=== PATIENT | male | born 1940 | race Caucasian/White ===

== ENCOUNTER 2018-01-29 11:59 | Emergency (ER) | payer OTHER ==
[~2018-01-29] VITALS: Ht 182.9 cm; Wt 87.3 kg
[~2018-01-29 11:59] MED LIST: ADULT LOW DOSE81 MG PO; ALTACE5 M1; AMLODIPINE BESYL5 MG PO; ASPIR 8181 MG PO; ATORVASTATIN CA20 MG PO; EFFIENT10 MG PO; FLUZONE 2045 MCG/011; LISINOPRIL10 MG PO; MAG-OX 400 TAB400 MG PO; METFORMIN; METFORMIN HCL500 MG PO; PNEUMOVAX25 MCG/0.5; SIMVASTATIN40 MG PO; TOPROL XL25 MG PO
[2018-01-29] MEDS ORDERED: GLIPIZIDE 10 MG10 MG PO (12:07)
[2018-01-29] MEDS ORDERED: NORCO 5-325 TA1 EACH PO (12:47)
[2018-01-29 13:30] VITALS: BP 152/77
== END 2018-01-29 13:30 | disposition home or self-care (01) ==
LOC: M.ERS 11:59
DX: S43.101A Unspecified dislocation of right acromioclavicular joint, initial encounter (principal); E11.9 Type 2 diabetes mellitus without complications; I10 Essential (primary) hypertension; I25.10 Atherosclerotic heart disease of native coronary artery without angina pectoris; Z88.0 Allergy status to penicillin; W01.0XXA Fall on same level from slipping, tripping and stumbling without subsequent striking against object, initial encounter; Y93.89 Activity, other specified; Y92.89 Other specified places as the place of occurrence of the external cause; Y99.8 Other external cause status

== ENCOUNTER 2019-10-14 23:35 | Inpatient (IN) | payer OTHER ==
[~2019-10-14] VITALS: Ht 182.9 cm; Wt 81.6 kg
--- NOTE | ~2019-10-14 | OP ---
[address] [address] OPERATIVE REPORT Name: HUGH MCCONNELL Room: [address] IN M.R.#: [id number] Admission: 10/15/19 Attend Phys: Dale Singer MD Discharge: Date of : 38 Report #: [id number] THIS REPORT FOR: //name// CC: Dale Hunter PREOPERATIVE DIAGNOSIS: Left intertrochanteric femur fracture. POSTOPERATIVE DIAGNOSIS: Left intertrochanteric femur fracture. PROCEDURES: 1. Closed reduction and cephalomedullary fixation of left intertrochanteric femur fracture. 2. Physician-directed fluoroscopy. SURGEON: Jax Iraheta DO ASSISTANTS: 1. Mamadou Boss DO 2. Mamadou Evangelista DO ANESTHESIA: General. ANTIBIOTICS: Ancef IV. FLUIDS: 800 mL of lactated Ringer's. BLOOD LOSS: 100 mL. COMPLICATIONS: None. SPECIMENS: None. DRAINS: None. CONDITION OF PATIENT: Stable to the PACU. IMPLANTS: Adele gamma nail 10 x 170 mm x 125 degree with appropriately sized lag screw and distal interlocking static screw. INDICATIONS FOR PROCEDURE: The patient admitted to [facility]. Our consultation was obtained for left intertrochanteric femur fracture. He required medical clearance and Cardiology as well, ultimately cleared for surgery medically. I went over with the patient and significant other plan of surgery and risks and complications in detail as well as imaging and treatment options. Please see consultation note for full details of our discussion had. We obtained verbal and written consent to proceed [place] [address] OPERATIVE REPORT Name: HUGH MCCONNELL Room: [address] IN .R.#: [id number] Admission: 10/15/19 Attend Phys: Dale Singer MD Discharge: Date of : 38 Report #: [id number] the surgery as planned. DESCRIPTION OF PROCEDURE: I marked the left lower extremity in the presence of the operative team members. Everyone in attendance agreed. He was taken back to the operative suite where a briefing was performed indicating correct patient, procedure, site, antibiotics and that implants were present and sterile. All team members agreed. General anesthetic was administered. He was transferred over to the operating table in supine position, well-padded and secured. The left lower extremity was then closed reduced. C-arm brought in on multiplanar imaging, confirmed the reduction was excellent. Left lower extremity was then sterilely prepped and draped in standard fashion after he was confirmed to be appropriately padded. Timeout was performed indicating correct patient, procedure, site, antibiotics and that implants were present and sterile. All team members agreed. Marked out our incisions with the help of fluoroscopy. A scalpel was taken through skin proximal to the greater trochanter. Dissection down to the greater trochanter. Smooth ball-tipped guidewire inserted and advanced under multiplanar C-arm imaging in the appropriate position. We then reamed over that guidewire. Final implant had been thrown on to the back table of a 10 x 170 x 125 degree nail. This was inserted and scalpel was made for a double sleeve for lag screw placement. We then placed the guidewire in the appropriate position within the femoral neck and head on multiplanar C-arm imaging, measured, reamed, and placed the appropriately sized lag screw. Multiple pictures were taken. There was no malreduction during lag screw placement. We then engaged our setscrew and backed off one quarter turn confirming that the set screw was fully engaged by no longer being able to turn the lag screwdriver handle. We then disengaged the lag screwdriver from the lag screw, removed the guidewire and guide, made an incision for distal interlocking static screw. The guide was placed down to bone, drilled, measured and placed an appropriate length and position static screw, removed the external aiming guide. Final images showed excellent placement of hardware and reduction of fracture. Saved the images and dismissed C-arm, irrigated thoroughly with normal saline. Deep layers were closed with 0 Vicryl [id number] interrupted. Subcutaneous and skin were closed with 2-0 Monocryl buried deep yaquelin for skin. Debriefing performed where we confirmed procedure, blood loss and that all counts were correct and final. All team members agreed. Sterile silver impregnated dressings were applied and he was transferred off the operating table, taken to the PACU stable after being extubated successfully. POSTOPERATIVE COURSE AND EVALUATION: I spoke with his family members including his significant other, addressed any questions they had to their stated satisfaction. They were thankful for my time and efforts. He was resting in PACU with stable vital signs, pain controlled, neurovascularly intact. Dressing clean, dry and intact. Compartments were compressible. No pain with passive stretch. Weightbear as tolerated. PT, OT, case management to help with the discharge planning. DVT prophylaxis will be both pharmacological and [address] [address] OPERATIVE REPORT Name: HUGH MCCONNELL Room: [address] IN .R.#: [id number] Admission: 10/15/19 Attend Phys: Dale Singer MD Discharge: Date of : 38 Report #: [id number] mechanical. He was admitted to the medical service and Cardiology, when saw the patient in the PACU and he was overall doing well. I encouraged nursing and medical staff, the patient and family to call anytime with questions or concerns. By: [id number] Iraheta DO /papi
[~2019-10-14 23:35] MED LIST changes: +GLIPIZIDE 10 MG10 MG PO; +NORCO 5-325 TA1 EACH PO
[2019-10-14] MEDS ORDERED: FOSAMAX PLUS D1 EACH PO (23:41)
[2019-10-15 00:11] LABS: ABSOLUTE BASOPHILS 0.1 thou/uL (0.0-0.2); ABSOLUTE EOSINOPHILS 0.1 thou/uL (0.0-0.7); ABSOLUTE LYMPHOCYTES 1.9 thou/uL (0.8-5.3); ABSOLUTE MONOCYTES 0.6 thou/uL (0.0-1.2); ABSOLUTE NEUTROPHILS 3.9 thou/uL (1.6-8.1); BASOPHILS 0.9 %; HEMOGLOBIN 13.3 gm/dL (14.0-18.0); LYMPHOCYTES 29.5 %; MCH 29.5 pg (26.0-34.0); MCHC 33.2 g/dL (28.0-37.0); MCV 88.8 fL (80.0-100.0); MONOCYTES 8.6 %; MPV 9.2 fl. (7.2-11.1); NUCLEATED RBCS 0 /100WBC; PLATELET COUNT* 168 thou/uL (150-400); RBC 4.51 mil/uL (4.50-6.00); RDW-CV 13.5 % (10.5-14.5); WBC 6.6 thou/uL (4.0-11.0)
[2019-10-15 00:17] LABS: PROTIME 10.7 Seconds (9.20-11.50)
[2019-10-15 00:18] LABS: CREATININE 1.2 mg/dL (0.6-1.3); POTASSIUM 4.1 mmol/L (3.5-5.1)
[2019-10-15 00:22] LABS: ALBUMIN 3.4 g/dL (3.4-5.0); TOTAL BILIRUBIN 0.4 mg/dL (<0.1-1.0); TOTAL PROTEIN 7.2 g/dL (6.4-8.2)
[2019-10-15 01:15] VITALS: BP 150/70
[2019-10-15 01:24] VITALS: BP 181/80
[2019-10-15 01:30] VITALS: BP 150/70
[2019-10-15 09:55] VITALS: BP 149/65
--- NOTE | 2019-10-15 12:20 | EKG ---
[place] [address] ELECTROCARDIOGRAM REPORT Name: HUGH MCCONNELL Room: [address] ADM IN .R.#: [id number] Admission: 10/15/19 Attend Phys: Dale Singer MD Discharge: Date of : 38 Report #: [id number] THIS REPORT FOR: //name// [facility] ED Test Date: 2019-10-15 Test Time: 00:16:24 Pat Name: HUGH MCCONNELL Department: Room: [facility] Gender: Internal Investigator: [place] : 1940 Requested By: Silvia Hernandez Order Number: [id number] MD: Munir Karimi Measurements Intervals [place] Rate: 65 P: 66 DC: 142 QRS: 7 QRSD: 105 T: 42 QT: 405 QTc: 422 Interpretive Statements Sinus rhythm Multiple atrial premature complexes Compared to ECG 09/01/2016 12:39:52 no significant change. Electronically Signed On 10-15-2019 12:20:13 VIDEO GAME DEVELOPER by Munir [email or web address] <ELECTRONICALLY SIGNED> By: Estefany Karimi MD, [facility] 10/15/19 1220 0016 0016 Estefany Karimi MD, [facility] /EPI
[2019-10-15 12:32] LABS: CHOLESTEROL 144 mg/dL (<200); HDL CHOLESTEROL 44 mg/dL (>40); LDL CHOLESTEROL 79 mg/dL (<100); TC:HDL 3.3 Ratio (Not establshd); TRIGLYCERIDE 108 mg/dL (<150); VLDL 22 mg/dL (<40)
[2019-10-15 12:35] LABS: SERUM ASSESSMENT Clear
[2019-10-15 16:32] VITALS: BP 124/40
[2019-10-15 20:34] VITALS: BP 123/55
[2019-10-16 03:06] LABS: GLYCOHEMOGLOBIN (HGB A1C) 10.9 % (4.8-5.6)
[2019-10-16 04:47] LABS: ABSOLUTE EOSINOPHILS 0.1 thou/uL (0.0-0.7); ABSOLUTE LYMPHOCYTES 1.7 thou/uL (0.8-5.3); ABSOLUTE MONOCYTES 0.7 thou/uL (0.0-1.2); ABSOLUTE NEUTROPHILS 6.4 thou/uL (1.6-8.1); BASOPHILS 0.4 %; EOSINOPHILS 1.2 %; HEMATOCRIT 34.5 % (42.0-52.0); HEMOGLOBIN 11.7 gm/dL (14.0-18.0); LYMPHOCYTES 18.9 %; MCH 30.2 pg (26.0-34.0); MCHC 33.9 g/dL (28.0-37.0); MCV 89.1 fL (80.0-100.0); MONOCYTES 8.1 %; MPV 9.2 fl. (7.2-11.1); NUCLEATED RBCS 0 /100WBC; PLATELET COUNT* 138 thou/uL (150-400); POLYS 71.4 %; RBC 3.88 mil/uL (4.50-6.00); RDW-CV 13.8 % (10.5-14.5)
[2019-10-16 04:53] LABS: CALCIUM 8.3 mg/dL (8.5-10.1); CREATININE 0.9 mg/dL (0.6-1.3); POTASSIUM 4.2 mmol/L (3.5-5.1)
[2019-10-16 08:02] VITALS: BP 134/52
[2019-10-16 09:00] VITALS: BP 134/52
--- NOTE | 2019-10-16 16:26 | CON ---
[address] [address] CONSULTATION Name: HUGH MCCONNELL Room: [address] IN .R.#: [id number] Admission: 10/15/19 Attend Phys: Dale Singer MD Discharge: Date of : 38 Report #: [id number] THIS REPORT FOR: //name// CC: Dale Hunter DATE OF SERVICE: 10/15/2019 CARDIOLOGY CONSULTATION HISTORY OF PRESENT ILLNESS: I was asked by Dr. Singer to see this 79-year-old white male in Cardiology consultation for preoperative evaluation prior to undergoing an open repair of the left hip. This gentleman fell last night around 10:00 and fractured his left hip. This man has a history of coronary artery disease. He is status post 4 stents in 2011. He has not been followed closely by Cardiology. He cancelled appointments. He cannot give much of a history. He has been on lisinopril in the past and was on it when he had his stents. So, he presumably has high blood pressure. He also has non-insulin dependent diabetes mellitus, but is taking no medication for it now. However, his blood sugar when he came in was 365. Hemoglobin A1c is pending. He also apparently has hypercholesterolemia and he is apparently taking Lipitor. He had 4 stents, I believe in 2 different settings back in 2011. He denies any chest pain since then. He does not have any clearcut angina at all. He also does not have any anginal equivalent. He denies dyspnea on exertion, shortness of breath at rest, orthopnea, PND or edema. He has not had syncope or near syncope. Coronary risk factors are as described above, but do not include smoking. He has never smoked. He does have a family history of coronary artery disease. His brother does have a history of heart disease. His brother had a pacemaker. There is not clearly any other coronary artery disease in the family. He does not have renal failure. He has not had carotid disease or TIAs or CVAs. He has not had claudication or open or nonhealing wounds. PAST SURGICAL HISTORY: Includes cataract removal and arthroscopy knee surgery on the right in 2000. FAMILY HISTORY: As described above. There is no other family history of significance. SOCIAL HISTORY: He is , does not smoke, drink or use illegal drugs. ALLERGIES: THIS MAN IS ALLERGIC TO PENICILLIN. HOME MEDICATIONS: Include Alendronate 70 mg daily that is Fosamax. He is supposed to be taking aspirin, apparently his says he stopped it time ago. She says his doctor told him to stop it. He is supposed to be taking atorvastatin 20 [place] [address] CONSULTATION Name: HUGH MCCONNELL Room: [address] IN ..#: [id number] Admission: 10/15/19 Attend Phys: Dale Singer MD Discharge: Date of : 38 Report #: [id number] REVIEW OF SYSTEMS: Positive for diabetes, PENICILLIN ALLERGY, wearing glasses, decreased hearing, bleeding from the nose and wearing dentures. Otherwise, his review of systems is negative for some 40 different complaints in 14 different system categories including central nervous system, general, respiratory, cardiovascular, endocrine, gastrointestinal, genitourinary, hematologic, lymphatic, allergic, immunologic, psychiatric, musculoskeletal, skin, eyes, ears, nose, mouth, and throat. Please see review of system form for details and negatives in review of systems. PHYSICAL EXAMINATION: GENERAL: He presents as well-developed, well-nourished white male in no acute distress. VITAL SIGNS: His pulse was 60 and regular, blood pressure is 150/70, respirations are 18 and regular, temperature is 98.2. HEENT: His head was atraumatic. Eyes clear. NECK: Supple. There is no jugular venous distention or hepatojugular reflux. Thyroid is not enlarged. There is no adenopathy. SKIN: Warm and dry. Mucous membranes are moist. LUNGS: Clear to auscultation and percussion. HEART: Revealed normal first and second heart sound. There is soft S4. There is no S3. There are no murmurs, rubs, thrills, heaves or gallops. PMI is nondisplaced. ABDOMEN: Soft, flat and nontender. No palpable masses, no organomegaly. EXTREMITIES: Reveal no cyanosis, clubbing or edema. NEUROLOGIC: The patient mentated normally, talked normally and moved all extremities normally. LABORATORY DATA: His EKG shows normal sinus rhythm with frequent atrial premature beats, otherwise it is fairly unremarkable. Chest x-ray was normal. IMPRESSION: 1. Left hip fracture. 2. Preoperative evaluation. 3. Coronary artery disease, status post 4 coronary stents. 4. Essential hypertension. 5. Luj-wkbxijw-fhgizcddh diabetes mellitus. 6. Hypercholesterolemia. RECOMMENDATION: I think this man is a reasonable candidate for the proposed surgery. He is obviously higher risk than normal, given his underlying coronary artery disease in his age. However, the risk of operating on him is less than the risk of not operating on him. I would proceed with surgery. [address] [address] CONSULTATION Name: HUGH MCCONNELL Room: [address] [facility].#: [id number] Admission: 10/15/19 Attend Phys: Dale Singer MD Discharge: Date of : 39 Report #: [id number] Thank you very much for asking me to see this patient. If there are any questions, please feel free to contact me. <ELECTRONICALLY SIGNED> By: Vidal Torres MD, FACC 10/16/19 1626 1157 [id number]. Munir Karimi MD, FACC /nt
[2019-10-16 20:00] VITALS: BP 127/63
[2019-10-17] VITALS: BP 121/53
[2019-10-17 04:14] LABS: HEMATOCRIT 31.1 % (42.0-52.0); HEMOGLOBIN 10.6 gm/dL (14.0-18.0); MCH 30.3 pg (26.0-34.0); MCHC 34.1 g/dL (28.0-37.0); MCV 88.9 fL (80.0-100.0); MPV 9.2 fl. (7.2-11.1); NUCLEATED RBCS 0 /100WBC; PLATELET COUNT* 128 thou/uL (150-400); RDW-CV 13.2 % (10.5-14.5); WBC 11.2 thou/uL (4.0-11.0)
[2019-10-17 04:16] LABS: CALCIUM 8.1 mg/dL (8.5-10.1); CREATININE 1.1 mg/dL (0.6-1.3); POTASSIUM 4.9 mmol/L (3.5-5.1)
[2019-10-17 05:27] LABS: ABSOLUTE LYMPHOCYTES 0.9 thou/uL (0.8-5.3); ABSOLUTE MONOCYTES 0.4 thou/uL (0.0-1.2); ABSOLUTE NEUTROPHILS 9.9 thou/uL (1.6-8.1); ANISOCYTOSIS 1+; PLATELET ESTIMATE DECREASED; POIKILOCYTOSIS 1+
[2019-10-17 07:34] VITALS: BP 123/55
[2019-10-17 16:00] VITALS: BP 129/62
[2019-10-17 20:30] VITALS: BP 131/53
[2019-10-18 04:16] LABS: ABSOLUTE EOSINOPHILS 0.1 thou/uL (0.0-0.7); ABSOLUTE LYMPHOCYTES 1.4 thou/uL (0.8-5.3); ABSOLUTE MONOCYTES 0.5 thou/uL (0.0-1.2); ABSOLUTE NEUTROPHILS 10.3 thou/uL (1.6-8.1); BASOPHILS 0.3 %; EOSINOPHILS 0.7 %; HEMATOCRIT 32.2 % (42.0-52.0); HEMOGLOBIN 10.9 gm/dL (14.0-18.0); LYMPHOCYTES 11.1 %; MCH 29.9 pg (26.0-34.0); MCHC 33.8 g/dL (28.0-37.0); MCV 88.5 fL (80.0-100.0); MONOCYTES 4.4 %; MPV 9.3 fl. (7.2-11.1); NUCLEATED RBCS 0 /100WBC; PLATELET COUNT* 136 thou/uL (150-400); POLYS 83.5 %; RBC 3.64 mil/uL (4.50-6.00); RDW-CV 13.2 % (10.5-14.5); WBC 12.3 thou/uL (4.0-11.0)
[2019-10-18 04:32] LABS: CALCIUM 8.2 mg/dL (8.5-10.1); CREATININE 1.1 mg/dL (0.6-1.3); POTASSIUM 4.2 mmol/L (3.5-5.1)
[2019-10-18 08:00] VITALS: BP 142/74
[2019-10-18 12:52] VITALS: BP 128/55
[2019-10-18 16:00] VITALS: BP 138/65
[2019-10-19 04:05] LABS: ABSOLUTE EOSINOPHILS 0.2 thou/uL (0.0-0.7); ABSOLUTE MONOCYTES 1.2 thou/uL (0.0-1.2); ABSOLUTE NEUTROPHILS 9.6 thou/uL (1.6-8.1); BASOPHILS 0.4 %; EOSINOPHILS 1.8 %; HEMATOCRIT 27.4 % (42.0-52.0); HEMOGLOBIN 9.4 gm/dL (14.0-18.0); LYMPHOCYTES 8.6 %; MCHC 34.2 g/dL (28.0-37.0); MCV 87.7 fL (80.0-100.0); MONOCYTES 9.8 %; MPV 8.9 fl. (7.2-11.1); NUCLEATED RBCS 0 /100WBC; PLATELET COUNT* 127 thou/uL (150-400); POLYS 79.4 %; RBC 3.12 mil/uL (4.50-6.00); WBC 12.1 thou/uL (4.0-11.0)
[2019-10-19 04:07] LABS: CALCIUM 7.8 mg/dL (8.5-10.1); CREATININE 0.9 mg/dL (0.6-1.3); POTASSIUM 4.3 mmol/L (3.5-5.1)
[2019-10-19 08:00] VITALS: BP 132/71
[2019-10-19 16:08] VITALS: BP 142/68
[2019-10-20 07:45] VITALS: BP 139/74
[2019-10-20] MEDS ORDERED: OXYCODONE HCL 55 MG PO (10:17)
[2019-10-20] MEDS ORDERED: ELIQUIS2.5 MG PO (10:17)
[2019-10-20 10:19] VITALS: BP 139/74
[2019-10-20] MEDS ORDERED: MILK OF MA2400 MG/11 PO (10:23)
[2019-10-20] MEDS ORDERED: LANTUS SUBQ (10:23)
[2019-10-20] MEDS ORDERED: MIRALAX119 GM PO (10:24)
[2019-10-20 20:00] VITALS: BP 134/58
[2019-10-21 07:25] VITALS: BP 152/58
[2019-10-21 16:00] VITALS: BP 155/63
[2019-10-21 21:00] VITALS: BP 132/43
[2019-10-22] VITALS (7 sets, daily range): BP systolic 126–168; BP diastolic 56–80
[2019-10-22 04:58] LABS: HEMATOCRIT 28.4 % (42.0-52.0); HEMOGLOBIN 9.8 gm/dL (14.0-18.0); MCH 30.3 pg (26.0-34.0); MCHC 34.3 g/dL (28.0-37.0); MCV 88.2 fL (80.0-100.0); MPV 9.5 fl. (7.2-11.1); RBC 3.23 mil/uL (4.50-6.00); WBC 10.3 thou/uL (4.0-11.0)
[2019-10-23 08:00] VITALS: BP 130/67
[2019-10-23] MEDS ORDERED: OXYCODONE HCL 55 MG PO (14:15)
[2019-10-23 14:30] VITALS: BP 116/55
[2019-10-23 14:35] VITALS: BP 116/58
[2019-10-23 14:40] VITALS: BP 104/55
== END 2019-10-23 18:01 | DRG 481 ==
LOC: M.ERS 23:35 → M.ORTHSURG 10-15 00:06 → M.TBA-ER 10-15 00:06 → M.ORTHSURG 10-15 01:14
PROVIDERS: Emergency Medicine; Family Medicine; Internal Medicine; Orthopaedic Surgery; ADMIT Internal Medicine
PROC: 0QS706Z Reposition Left Upper Femur with Intramedullary Internal Fixation Device, Open Approach (ICD-10-PCS; principal; 2019-10-16)
DX: S72.142A Displaced intertrochanteric fracture of left femur, initial encounter for closed fracture (principal); D62 Acute posthemorrhagic anemia; I10 Essential (primary) hypertension; I25.10 Atherosclerotic heart disease of native coronary artery without angina pectoris; E11.65 Type 2 diabetes mellitus with hyperglycemia; I49.3 Ventricular premature depolarization; E78.00 Pure hypercholesterolemia, unspecified; M81.0 Age-related osteoporosis without current pathological fracture; D72.828 Other elevated white blood cell count; W01.0XXA Fall on same level from slipping, tripping and stumbling without subsequent striking against object, initial encounter; Y93.01 Activity, walking, marching and hiking; Y92.098 Other place in other non-institutional residence as the place of occurrence of the external cause; Z88.0 Allergy status to penicillin; Z79.899 Other long term (current) drug therapy; I25.2 Old myocardial infarction; Z95.5 Presence of coronary angioplasty implant and graft; Z91.19 Patient's noncompliance with other medical treatment and regimen; Z82.49 Family history of ischemic heart disease and other diseases of the circulatory system; Z98.49 Cataract extraction status, unspecified eye; Y99.8 Other external cause status; Z23 Encounter for immunization

== ENCOUNTER 2019-11-20 12:03 | Inpatient (IN) | payer MEDICARE ==
[~2019-11-20] VITALS: Ht 182.9 cm; Wt 84.4 kg
[~2019-11-20 12:03] MED LIST changes: +ELIQUIS2.5 MG PO; +FOSAMAX PLUS D1 EACH PO; +LANTUS SUBQ; +MILK OF MA2400 MG/11 PO; +MIRALAX119 GM PO; +OXYCODONE HCL 55 MG PO
[2019-11-20 12:05] VITALS: BP 140/73
[2019-11-20 12:29] LABS: ABSOLUTE BASOPHILS 0.1 thou/uL (0.0-0.2); ABSOLUTE EOSINOPHILS 0.3 thou/uL (0.0-0.7); ABSOLUTE LYMPHOCYTES 1.4 thou/uL (0.8-5.3); ABSOLUTE MONOCYTES 0.8 thou/uL (0.0-1.2); ABSOLUTE NEUTROPHILS 4.7 thou/uL (1.6-8.1); BASOPHILS 0.8 %; EOSINOPHILS 4.2 %; HEMATOCRIT 30.9 % (42.0-52.0); HEMOGLOBIN 10.3 gm/dL (14.0-18.0); LYMPHOCYTES 19.7 %; MCH 28.7 pg (26.0-34.0); MCHC 33.4 g/dL (28.0-37.0); MONOCYTES 11.3 %; MPV 8.2 fl. (7.2-11.1); NUCLEATED RBCS 0 /100WBC; PLATELET COUNT* 243 thou/uL (150-400); RDW-CV 14.4 % (10.5-14.5); WBC 7.3 thou/uL (4.0-11.0)
[2019-11-20 12:35] LABS: CREATININE 1.4 mg/dL (0.6-1.3); POTASSIUM 4.2 mmol/L (3.5-5.1)
[2019-11-20 12:36] LABS: APTT 27.8 Seconds (25.0-31.3); INR 1.1; PROTIME 11.6 Seconds (9.20-11.50)
[2019-11-20 12:46] LABS: ALBUMIN 2.4 g/dL (3.4-5.0); TOTAL BILIRUBIN 0.5 mg/dL (<0.1-1.0); TOTAL PROTEIN 6.7 g/dL (6.4-8.2)
[2019-11-20 12:56] LABS: URINE BILIRUBIN NEGATIVE (Negative); URINE BLOOD 1+ (Negative); URINE CLARITY CLEAR; URINE COLOR YELLOW; URINE GLUCOSE-RANDOM 2+ (Negative); URINE KETONES NEGATIVE (Negative); URINE NITRITE-REFLEX NEGATIVE (Negative); URINE PROTEIN TRACE (Negative); URINE SPECIFIC GRAVITY 1.015 (1.005-1.030)
[2019-11-20 13:07] LABS: URINE LEUKOCYTES-REFLEX 3+ (Negative)
[2019-11-20 13:34] LABS: BACTERIA-REFLEX >30 Many /HPF (None Seen); CASTS None Seen /LPF (None Seen); MUCUS None Seen strn/LPF (None Seen); SQUAMOUS 0-3 Few /LPF (0-3); URINE RBC 3-10 Few /HPF (0-2); URINE WBC-REFLEX >25 Many /HPF (0-5)
[2019-11-20 13:35] LABS: CRYSTALS None Seen /LPF (None Seen)
--- NOTE | 2019-11-20 14:41 | EKG ---
[place] [address] ELECTROCARDIOGRAM REPORT Name: JAYESHHUGH Room: [place] [address] ADM IN .R.#: [id number] Admission: 11/20/19 Attend Phys: Pramod Smith, Discharge: Date of : 38 Report #: [id number] THIS REPORT FOR: //name// [facility] ED Test Date: 2019-11-20 Test Time: 12:15:09 Pat Name: HUGH MCCONNELL Department: Room: [facility] Gender: M [place] Tender: OTILIO : 1940 Requested By: Sidney Hyatt Order Number: [id number] MD: Vidal Torres Measurements Intervals [place] Rate: 80 P: 29 NC: 145 QRS: 7 QRSD: 103 T: 41 QT: 418 QTc: 483 Interpretive Statements Sinus rhythm Ventricular bigeminy Compared to ECG 10/15/2019 00:16:24 Ventricular premature complex(es) now present Atrial premature complex(es) no longer present Electronically Signed On 11-20-2019 14:41:13 JACK STRIP ASSEMBLER by Vidal Torres [email or web address] <ELECTRONICALLY SIGNED> By: Vidal Torres MD, FAC 11/20/19 1441 1215 1215 Vidal Torres MD, [facility] /EPI
[2019-11-20 19:19] VITALS: BP 112/58
[2019-11-20 19:45] VITALS: BP 106/51
[2019-11-21 05:31] LABS: HEMATOCRIT 30.7 % (42.0-52.0); HEMOGLOBIN 10.2 gm/dL (14.0-18.0); MCH 28.6 pg (26.0-34.0); MCHC 33.3 g/dL (28.0-37.0); MCV 85.7 fL (80.0-100.0); MPV 9.3 fl. (7.2-11.1); RBC 3.59 mil/uL (4.50-6.00); WBC 6.4 thou/uL (4.0-11.0)
[2019-11-21 05:55] LABS: CALCIUM 7.8 mg/dL (8.5-10.1); CREATININE 1.2 mg/dL (0.6-1.3); MAGNESIUM 1.8 mg/dL (1.8-2.4); POTASSIUM 4.2 mmol/L (3.5-5.1)
[2019-11-21 07:50] VITALS: BP 111/65
[2019-11-21 16:00] VITALS: BP 128/57
[2019-11-21 22:24] VITALS: BP 112/56
[2019-11-22 07:40] VITALS: BP 109/66
[2019-11-22 16:00] VITALS: BP 118/67
[2019-11-22 19:45] VITALS: BP 118/60
[2019-11-23 08:08] VITALS: BP 121/53
[2019-11-23 18:01] VITALS: BP 129/59
[2019-11-23 19:30] VITALS: BP 126/60
[2019-11-24 08:30] VITALS: BP 111/51
[2019-11-24 21:00] VITALS: BP 139/61
[2019-11-25 07:30] VITALS: BP 136/61
[2019-11-25 15:59] VITALS: BP 118/69
[2019-11-25 21:10] VITALS: BP 129/63
[2019-11-26 07:30] VITALS: BP 100/57
[2019-11-26 18:38] VITALS: BP 121/58
[2019-11-26 20:00] VITALS: BP 138/68
[2019-11-27 07:30] VITALS: BP 124/62
[2019-11-27 09:56] VITALS: BP 124/62
[2019-11-27] MEDS ORDERED: CIPRO500 M1 PO (12:12)
[2019-11-27 16:00] VITALS: BP 122/54
[2019-11-27 19:45] VITALS: BP 126/56
[2019-11-28 07:40] VITALS: BP 136/86
[2019-11-28 12:49] VITALS: BP 124/62
[2019-11-28 14:10] VITALS: BP 124/62
== END 2019-11-28 14:20 | disposition home health service (06) | DRG 637 ==
LOC: M.ERS 12:03 → M.TBA-ER 13:40 → M.3W 13:40
PROVIDERS: Family Medicine; ADMIT Family Medicine
DX: E11.65 Type 2 diabetes mellitus with hyperglycemia (principal); G93.41 Metabolic encephalopathy; N39.0 Urinary tract infection, site not specified; I25.10 Atherosclerotic heart disease of native coronary artery without angina pectoris; H26.9 Unspecified cataract; K59.00 Constipation, unspecified; E11.22 Type 2 diabetes mellitus with diabetic chronic kidney disease; N18.3 Chronic kidney disease, stage 3 (moderate); D64.9 Anemia, unspecified; I12.9 Hypertensive chronic kidney disease with stage 1 through stage 4 chronic kidney disease, or unspecified chronic kidney disease; Z79.891 Long term (current) use of opiate analgesic; Z79.899 Other long term (current) drug therapy; Z79.4 Long term (current) use of insulin; Z88.0 Allergy status to penicillin; Z99.3 Dependence on wheelchair; Z83.3 Family history of diabetes mellitus; Z91.14 Patient's other noncompliance with medication regimen; Z95.5 Presence of coronary angioplasty implant and graft; I25.2 Old myocardial infarction